=== PATIENT | female | born 1970 | race Caucasian/White ===

== ENCOUNTER 2016-05-13 06:54 | Day surgery (SDC) | payer MEDICAID ==
[~2016-05-13] VITALS: Ht 170.2 cm; Wt 90.0 kg
[~2016-05-13 06:54] MED LIST: AMIT50TA PO; FLUO20CA8 PO; GABA300C10 PO; LISI-170 PO; METF500T4 PO; METH750T2 PO; RISP0.5T3 PO; RISP3TAB3 PO; VENL75TA PO; Will bring list DOS
[2016-05-13] MEDS ORDERED: NEOSPORIN OINT, 15GM ONE (06:55)
[2016-05-13] MEDS ORDERED: BUPIVACAINE/PF-EPI 0.5% 1:200K ONE (06:55)
[2016-05-13] MEDS ORDERED: LACTATED RINGERS 1,000 ML IV SCH (07:49)
[2016-05-13 07:52] VITALS: BP 151/101
[2016-05-13] MEDS ORDERED: MIDAZOLAM 1 MG/ML, 2ML ONE (08:19)
[2016-05-13] MEDS ORDERED: FENTANYL PF 250 MCG/5ML ONE (08:19)
[2016-05-13] MEDS ORDERED: PROMETHAZINE 25 MG/ML, 1ML IV PRN (09:30)
[2016-05-13] MEDS ORDERED: ACETAMINOPHEN 325 MG TABLET PO PRN (09:30)
[2016-05-13] MEDS ORDERED: LABETALOL 5MG/ML, 20ML IV PRN (09:30)
[2016-05-13] MEDS ORDERED: MEPERIDINE/PF 25MG/0.5ML IVPush PRN (09:30)
[2016-05-13] MEDS ORDERED: HYDROmorphone 1 MG/ML, 1ML IV PRN (09:30)
[2016-05-13] MEDS ORDERED: hydrALAzine 20 MG/ML, 1ML IV PRN (09:30)
[2016-05-13] MEDS ORDERED: OXYcodone 5 MG/5 ML ORAL.SOL UDC PO PRN (09:30)
[2016-05-13] MEDS ORDERED: ONDANSETRON 2MG/ML, 2ML IVPush PRN (09:30)
[2016-05-13] MEDS ORDERED: CEFAZOLIN 1,000 MG ONE (09:41)
[2016-05-13] MEDS ORDERED: PROPOFOL 10 MG/ML, 20ML ONE (09:41)
[2016-05-13] MEDS ORDERED: DEXAMETHASONE 4 MG/ML, 5ML ONE (09:41)
[2016-05-13] MEDS ORDERED: ONDANSETRON 2MG/ML, 2ML ONE (09:41)
[2016-05-13] MEDS ORDERED: ROCURONIUM 10 MG/ML ONE (09:41)
[2016-05-13] MEDS ORDERED: OXYcodone/APAP 5/325MG TABLET PO PRN (10:00)
[2016-05-13] MEDS ORDERED: PROMETHAZINE 25 MG/ML, 1ML IM PRN (10:00)
[2016-05-13] MEDS ORDERED: METHOCARBAMOL 750 MG TABLET PO SCH (10:00)
[2016-05-13] MEDS ORDERED: FENTANYL PF 100 MCG/2ML ONE (10:57)
[2016-05-13] MEDS ORDERED: ACETAMINOPHEN 650 MG/20.3 ML UDC ONE (10:57)
[2016-05-13] MEDS ORDERED: OXYcodone 5 MG/5 ML ORAL.SOL UDC ONE (10:58)
[2016-05-13] MEDS ORDERED: METHOCARBAMOL 750 MG TABLET ONE (10:58)
[2016-05-13] MEDS ORDERED: GABAPENTIN 300 MG CAPSULE PO SCH (11:00)
[2016-05-13] MEDS: FENTANYL PF 100 MCG/2ML IV PRN ×2 (11:03→11:10)
[2016-05-13] MEDS ORDERED: MORPHINE SULFATE 4 MG/ML, 1ML ONE ×2 (11:16→13:46)
[2016-05-13] MEDS: morphine SULFATE 10 MG/ML, 1ML IVPush PRN ×2 (11:18→13:49)
[2016-05-13] MEDS ORDERED: HYDROmorphone 2 MG/ML, 1ML ONE (11:45)
[2016-05-13] MEDS ORDERED: ALBUTEROL SULFATE 2.5 MG/3 ML ONE (17:08)
[2016-05-13] MEDS ORDERED: ALBUTEROL SULFATE 2.5 MG/3 ML NPPB ONE (17:30)
[2016-05-14] MEDS ORDERED: FLUOXETINE 20 MG CAPSULE PO SCH (09:00)
[2016-05-14] MEDS ORDERED: LISINOPRIL 20 MG TABLET PO SCH (09:00)
[2016-05-14] MEDS ORDERED: RISPERIDONE 0.5 MG TABLET PO SCH (09:00)
== END 2016-05-13 18:10 | disposition home or self-care (01) ==
LOC: OUT 06:54
PROVIDERS: ATTEND Orthopaedic Surgery Orthopaedic Surgery of the Spine
DX: M46.1 Sacroiliitis, not elsewhere classified (principal); E66.01 Morbid (severe) obesity due to excess calories; Z68.31 Body mass index [BMI] 31.0-31.9, adult; Z72.89 Other problems related to lifestyle; M19.90 Unspecified osteoarthritis, unspecified site; I10 Essential (primary) hypertension
CPT/HCPCS: 27279; 72202; 94640; C1762; C1776; J0690; J1100; J1170; J2250; J2270; J2405; J2704; J3010; J7120; 76000; J7613

== ENCOUNTER 2017-02-27 09:01 | Emergency (ER) | payer MEDICAID ==
[~2017-02-27] VITALS: Ht 170.2 cm; Wt 87.0 kg
[2017-02-27 11:14] LABS: BASOPHILS # (AUTO) 0.03 x10^3/uL (0-0.1); BASOPHILS % (AUTO) 0 % (0-1); EOSINOPHILS # (AUTO) 0.08 x10^3/uL (0-0.4); EOSINOPHILS % (AUTO) 1 % (1-7); LYMPHOCYTES % (AUTO) 13 % (22-44); MD NO; MEAN CORPUSCULAR HEMOGLOBIN 29.8 pg (27.0-34.8); MEAN CORPUSCULAR HGB CONC 33.2 g/dL (32.4-35.8); MEAN CORPUSCULAR VOLUME 89.5 fL (80-100); MEAN PLATELET VOLUME 9.9 fL (7.4-10.4); MONOCYTES # (AUTO) 0.64 x10^3/uL (0.2-0.8); MONOCYTES % (AUTO) 6 % (2-9); NEUTROPHILS # (AUTO) 8.77 x10^3/uL (1.8-6.8); NEUTROPHILS % (AUTO) 80 % (42-75); PLATELET COUNT 275 x10^3/uL (130-400); RED BLOOD COUNT 4.74 x10^6/uL (3.82-5.3); RED CELL DISTRIBUTION WIDTH 14.1 % (9.6-15.2)
[2017-02-27 11:16] VITALS: BP 136/87
[2017-02-27 11:26] LABS: ALANINE AMINOTRANSFERASE 15 U/L (12-78); ALBUMIN 4.2 g/dL (3.4-5.0); ANION GAP 8 mmol/L (5-15); CALCIUM 9.1 mg/dL (8.5-10.1); CHLORIDE 105 mmol/L (98-107); CREATININE 0.76 mg/dL (0.55-1.02)
[2017-02-27 11:31] LABS: ALKALINE PHOSPHATASE 124 U/L (45-117); BILIRUBIN,TOTAL 0.4 mg/dL (0.2-1.0); TOTAL PROTEIN 8.1 g/dL (6.4-8.2); TROPONIN I < 0.015 ng/mL (0.000-0.045)
[2017-02-27 11:33] LABS: RAPID INFLUENZA A POSITIVE (Negative)
[2017-02-27 11:34] LABS: RAPID INFLUENZA B Negative (Negative)
== END 2017-02-27 12:02 | disposition home or self-care (01) ==
LOC: ED 11:50
DX: J09.X2 Influenza due to identified novel influenza A virus with other respiratory manifestations (principal); I10 Essential (primary) hypertension; E78.5 Hyperlipidemia, unspecified
CPT/HCPCS: 36415; 71045; 80053; 84484; 85025; 87400; 93005; 99285

== ENCOUNTER 2019-04-16 11:56 | Emergency (ER) | payer MEDICAID ==
[~2019-04-16] VITALS: Ht 165.1 cm; Wt 81.0 kg
[~2019-04-16 11:56] MED LIST changes: +FLUO20CA23 PO; -FLUO20CA8 PO; +METF500T17 PO; -METF500T4 PO
[2019-04-16 13:16] LABS: RAPID INFLUENZA A Negative (Negative); RAPID INFLUENZA B Negative (Negative)
[2019-04-16 13:45] LABS: BASOPHILS # (AUTO) 0.03 x10^3/uL (0-0.1); BASOPHILS % (AUTO) 0 % (0-1); EOSINOPHILS # (AUTO) 0.13 x10^3/uL (0-0.4); EOSINOPHILS % (AUTO) 1 % (1-7); LYMPHOCYTES # (AUTO) 1.99 x10^3/uL (1-3.4); LYMPHOCYTES % (AUTO) 21 % (22-44); MD NO; MEAN CORPUSCULAR HEMOGLOBIN 29.9 pg (27.0-34.8); MEAN CORPUSCULAR HGB CONC 33.3 g/dL (32.4-35.8); MEAN CORPUSCULAR VOLUME 89.7 fL (80-100); MEAN PLATELET VOLUME 9.6 fL (7.4-10.4); MONOCYTES % (AUTO) 7 % (2-9); NEUTROPHILS # (AUTO) 6.61 x10^3/uL (1.8-6.8); NEUTROPHILS % (AUTO) 71 % (42-75); PLATELET COUNT 322 x10^3/uL (130-400); RED BLOOD COUNT 4.83 x10^6/uL (3.82-5.3); RED CELL DISTRIBUTION WIDTH 13.8 % (9.6-15.2)
[2019-04-16 13:56] LABS: ALBUMIN 4.4 g/dL (3.4-5.0); ANION GAP 10 mmol/L (5-15); CALCIUM 9.4 mg/dL (8.5-10.1); CHLORIDE 107 mmol/L (98-107); CREATININE 0.77 mg/dL (0.55-1.02)
[2019-04-16 13:59] LABS: TROPONIN I < 0.015 ng/mL (0.000-0.045)
--- NOTE | 2019-04-16 15:05 | NUR ---
SKEIN INSPECTOR: PT AMBULATORY TO ROOM FROM LOBBY
[2019-04-16 15:21] VITALS: BP 156/93
--- NOTE | 2019-04-16 15:27 | NUR ---
Pt resting on gurney connected to pulse ox and NIBP cuff. VINNY. EDMD at bedside discussing plan of care with pt. No needs expressed at this time. Pending D/C paperwork. Call light within reach.
--- NOTE | 2019-04-16 15:52 | NUR ---
Patient given discharge instructions and they have confirmed that they understand the instructions. Patient ambulatory with steady gait. Pt left with Rx, d/c paperwork, and all personal belongings. NADN. No needs expressed.
== END 2019-04-16 15:55 | disposition home or self-care (01) ==
LOC: ED 15:50
DX: J20.9 Acute bronchitis, unspecified (principal); I10 Essential (primary) hypertension; E78.5 Hyperlipidemia, unspecified; G89.29 Other chronic pain; R06.00 Dyspnea, unspecified
CPT/HCPCS: 36415; 71046; 80048; 82040; 83605; 84484; 85025; 87040; 87400; 93005; 99285

== ENCOUNTER 2019-09-10 15:12 | Emergency (ER) | payer MEDICAID ==
[~2019-09-10] VITALS: Ht 171.4 cm; Wt 88.0 kg
--- NOTE | 2019-09-10 15:35 | NUR ---
Pt to room from lobby.
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
--- NOTE | 2019-09-10 15:56 | NUR ---
COLONOSCOPY SCHEDULED FOR THIS TUESDAY
[2019-09-10] MEDS ORDERED: MORPHINE SULFATE 4 MG/ML, 1ML ONE (16:08)
[2019-09-10] MEDS ORDERED: ONDANSETRON 2MG/ML, 2ML ONE (16:08)
[2019-09-10 16:31] VITALS: BP 168/98
--- NOTE | 2019-09-10 16:32 | NUR ---
ZOFRAN AND MORPHINE GIVEN PER EMAR. PT AWAITING XR.
--- NOTE | 2019-09-10 16:50 | NUR ---
PT ENDORSED TO BREAK RN.
--- NOTE | 2019-09-10 16:51 | NUR ---
TASK RN: PT TO XRAY AT THIS TIME
[2019-09-10] MEDS ORDERED: ONDANSETRON 2MG/ML, 2ML IVPush ONE (17:00)
[2019-09-10] MEDS ORDERED: MORPHINE SULFATE 4 MG/ML, 1ML IVPush ONE (17:00)
--- NOTE | 2019-09-10 17:34 | NUR ---
PT REPORT FROM VIKA MCCOY RN.
--- NOTE | 2019-09-10 17:54 | NUR ---
DR SANTOS AT
--- NOTE | 2019-09-10 18:30 | NUR ---
PT DC'D PER MACK MENG
== END 2019-09-10 18:16 | disposition home or self-care (01) ==
LOC: ED 17:35
DX: S73.101A Unspecified sprain of right hip, initial encounter (principal); S93.401A Sprain of unspecified ligament of right ankle, initial encounter; S93.601A Unspecified sprain of right foot, initial encounter; E78.5 Hyperlipidemia, unspecified; Z90.49 Acquired absence of other specified parts of digestive tract; Z90.710 Acquired absence of both cervix and uterus; Z90.722 Acquired absence of ovaries, bilateral; I10 Essential (primary) hypertension; W01.0XXA Fall on same level from slipping, tripping and stumbling without subsequent striking against object, initial encounter; Y93.89 Activity, other specified; Y92.009 Unspecified place in unspecified non-institutional (private) residence as the place of occurrence of the external cause; Y99.8 Other external cause status
CPT/HCPCS: 73502; 73610; 73630; 96374; 96375; 99284; J2270; J2405

== ENCOUNTER 2020-01-24 14:47 | Emergency (ER) | payer MEDICAID ==
[~2020-01-24] VITALS: Ht 170.2 cm; Wt 84.0 kg
[~2020-01-24 14:47] MED LIST changes: -RISP0.5T3 PO; +RISP0.5T62 PO; -RISP3TAB3 PO; +RISP3TAB58 PO
[2020-01-24 15:27] VITALS: BP 153/90
[2020-01-24] MEDS ORDERED: METHOCARBAMOL 750 MG TABLET PO ONE (16:00)
[2020-01-24] MEDS ORDERED: KETOROLAC 30 MG/1 ML IVPush ONE (16:00)
[2020-01-24] MEDS ORDERED: HYDROmorphone 2 MG/ML, 1ML IVPush PRN (16:00)
[2020-01-24] MEDS ORDERED: SODIUM CHLORIDE FLUSH 10ML SYR IVF ONE (16:00)
[2020-01-24] MEDS ORDERED: ONDANSETRON 2MG/ML, 2ML IVPush ONE (16:00)
--- NOTE | 2020-01-24 16:07 | NUR ---
RAD IN ROOM.
[2020-01-24] MEDS ORDERED: ONDANSETRON 2MG/ML, 2ML ONE (16:11)
[2020-01-24] MEDS ORDERED: HYDROmorphone 1 MG/ML, 1ML INJ ONE (16:11)
[2020-01-24] MEDS ORDERED: KETOROLAC 30 MG/1 ML ONE (16:11)
[2020-01-24] MEDS ORDERED: METHOCARBAMOL 750 MG TABLET ONE (16:11)
--- NOTE | 2020-01-24 16:39 | NUR ---
PIV STARTED, PT MEDICATED PER EMAR. VSS, NADN. AWAITING RAD.
--- NOTE | 2020-01-24 16:50 | NUR ---
PT TRANSFERED TO WHEELCHAIR W/O DIFFICULTY AND ASSISTED TO REST ROOM. RETURNED TO ROOM W/O INCIDENT. PT REPORTS RELIEF IN PAIN AFTER MEDS.
--- NOTE | 2020-01-24 16:51 | NUR ---
PT TO RAD.
[2020-01-24] MEDS ORDERED: PROMETHAZINE 25 MG/ML, 1ML IM ONE (17:30)
--- NOTE | 2020-01-24 18:56 | NUR ---
Patient given discharge instructions and they have confirmed that they understand the instructions. Patient wheeled to dc desk per pt request. VINNY.
== END 2020-01-24 18:57 | disposition home or self-care (01) ==
LOC: ED 18:48
DX: S39.012A Strain of muscle, fascia and tendon of lower back, initial encounter (principal); E78.5 Hyperlipidemia, unspecified; I10 Essential (primary) hypertension; Z90.710 Acquired absence of both cervix and uterus; Z90.49 Acquired absence of other specified parts of digestive tract; Z90.721 Acquired absence of ovaries, unilateral; X58.XXXA Exposure to other specified factors, initial encounter; Y93.89 Activity, other specified; Y92.89 Other specified places as the place of occurrence of the external cause; Y99.8 Other external cause status
CPT/HCPCS: 72110; 93005; 96374; 96375; 99284; J1170; J1885; J2405

== ENCOUNTER 2020-02-23 15:09 | Emergency (ER) | payer MEDICAID ==
[~2020-02-23] VITALS: Ht 165.1 cm; Wt 75.0 kg
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
[2020-02-23] MEDS ORDERED: LORazepam 2 MG/ML, 1ML IM ONE (15:30)
[2020-02-23] MEDS ORDERED: LORazepam 2 MG/ML, 1ML ONE (15:43)
--- NOTE | 2020-02-23 15:56 | NUR ---
PATIENT MEDICATED PER ORDER, PT LESS TEARFUL, NOT YELLING AND CRYING OUT AT THIS TIME.CONTINUES ON MONITOR EQUIPMENT. AWAITING MEDICTION EFFECT.
--- NOTE | 2020-02-23 17:11 | NUR ---
CALL FROM DAVID, PATIENTS PARTNER WHO STATES THE PATIENT USES MARIJUANA FOR HER PAIN AND SHE WAS OUT YESTERDAY. DAVID STATES SHE MIGHT HAVE BEEN TRYING TO SUBSTITUTE HER MARIJUANA WITH SOME MUSCLE RELAXERS SHE HAS AT HOME. THE PATIENT DOES NOT WANT US TO SPEAK WITH HER PARTNER DAVID ABOUT HER CONDITION. PARTNER DAVID STATES SHE HAS BEEN IN CONTACT WITH PATIENTS MOTHER.
--- NOTE | 2020-02-23 17:29 | NUR ---
PATIENT COMPLAINING OF NECK AND PAIN ON THE BACK OF HER HEAD. ASSISTED THE PATIENT IN CALLING HER MOM ON HER CELL PHONE. PT'S MOM ADVISED THAT SHE WILL PICK HER UP WHEN DISCHARGED. PATIENT CONTINUES TO BE TEARY BUT NO OTHER OUTBURSTS OR YELLING. VITALS UPDATED AND CALL LIGHT WITHIN REACH. NO ADDITIONAL NEEDS AT THIS TIME.
[2020-02-23 17:47] LABS: BASOPHILS % (AUTO) 1 % (0-1); EOSINOPHILS % (AUTO) 0 % (1-7); LYMPHOCYTES % (AUTO) 11 % (22-44); MEAN CORPUSCULAR HEMOGLOBIN 29.6 pg (27.0-34.8); MEAN CORPUSCULAR HGB CONC 33.1 g/dL (32.4-35.8); MEAN PLATELET VOLUME 9.2 fL (7.4-10.4); MONOCYTES % (AUTO) 4 % (2-9); NEUTROPHILS % (AUTO) 84 % (42-75); PLATELET COUNT 358 x10^3/uL (130-400); RED BLOOD COUNT 4.91 x10^6/uL (3.82-5.3); RED CELL DISTRIBUTION WIDTH 13.9 % (9.6-15.2)
--- NOTE | 2020-02-23 17:58 | NUR ---
patients mom is minna [phone]. She will pick her up anytime when discharged.
[2020-02-23 18:01] LABS: ALANINE AMINOTRANSFERASE 16 U/L (12-78); ALBUMIN 4.5 g/dL (3.4-5.0); ANION GAP 5 mmol/L (5-15); CALCIUM 9.3 mg/dL (8.5-10.1); CHLORIDE 110 mmol/L (98-107)
[2020-02-23 18:02] LABS: ALKALINE PHOSPHATASE 119 U/L (45-117); BILIRUBIN,TOTAL 0.5 mg/dL (0.2-1.0); CREATINE KINASE, TOTAL 99 U/L (26-192); TOTAL PROTEIN 8.4 g/dL (6.4-8.2)
[2020-02-23 18:05] LABS: MD SCAN
[2020-02-23] MEDS ORDERED: ACETAMINOPHEN 500 MG TABLET PO ONE (18:30)
[2020-02-23] MEDS ORDERED: ACETAMINOPHEN 500 MG TABLET ONE (18:36)
--- NOTE | 2020-02-23 18:46 | NUR ---
PT ABLE TO AMBULATE WITH STAND BY ASSIST WITH USE OF WHEELCHAIR FOR BALANCE. MOVES SLOWLY AND STEADILY.
--- NOTE | 2020-02-23 18:55 | NUR ---
CALL TO MOM FOR PICKUP, MOM ADVISED SHE LIVES AN HOUR AWAY AND IS LEAVING NOW. REPORT TO CAILIN GIRON.
--- NOTE | 2020-02-23 18:55 | NUR ---
DISCUSSED WITH DR BEY, PT ABLE TO AMB WITH ASSIST OF W/C FOR SUPPORT, PT TO BE DC'D.
--- NOTE | 2020-02-23 18:55 | NUR ---
report recieved from bo rn.
[2020-02-23 19:48] VITALS: BP 153/99
== END 2020-02-23 20:16 | disposition home or self-care (01) ==
LOC: ED 16:02
DX: D72.829 Elevated white blood cell count, unspecified (principal); F41.0 Panic disorder [episodic paroxysmal anxiety]; R06.4 Hyperventilation; F41.1 Generalized anxiety disorder; R00.9 Unspecified abnormalities of heart beat; R94.31 Abnormal electrocardiogram [ECG] [EKG]; I10 Essential (primary) hypertension; Z90.49 Acquired absence of other specified parts of digestive tract; Z90.710 Acquired absence of both cervix and uterus; Z90.721 Acquired absence of ovaries, unilateral
CPT/HCPCS: 36415; 71045; 80053; 82550; 85025; 93005; 96372; 99285; J2060

== ENCOUNTER 2020-04-04 11:18 | Emergency (ER) | payer MEDICAID ==
[~2020-04-04] VITALS: Ht 170.2 cm; Wt 85.0 kg
[~2020-04-04 11:18] MED LIST changes: +METH-640 PO; -METH750T2 PO
--- NOTE | 2020-04-04 11:46 | NUR ---
PT SENT FROM PCP FOR HTN, NAUSEA, AND FEELING "LIGHT HEADED". EKG COMPLETE IN TRIAGE. PT ASSISTE TO RESTROOM AND BACK. PT REPORTS FEELING WEAK ON HER FEET AND LIGHT HEADED WHEN SHE WALKS. PT RESTING IN [facility].
[2020-04-04] MEDS ORDERED: LISINOPRIL 10 MG TABLET ONE (11:55)
--- NOTE | 2020-04-04 11:57 | NUR ---
PT MEDICATED PER MAR. LABS DRAWN. X RAY COMPLETE
[2020-04-04] MEDS ORDERED: LISINOPRIL 10 MG TABLET PO ONE (12:00)
[2020-04-04 12:07] LABS: BASOPHILS % (AUTO) 1 % (0-1); EOSINOPHILS % (AUTO) 1 % (1-7); LYMPHOCYTES % (AUTO) 23 % (22-44); MEAN CORPUSCULAR HGB CONC 33.3 g/dL (32.4-35.8); MEAN PLATELET VOLUME 9.4 fL (7.4-10.4); MONOCYTES % (AUTO) 6 % (2-9); NEUTROPHILS % (AUTO) 69 % (42-75); PLATELET COUNT 318 x10^3/uL (130-400); RED BLOOD COUNT 4.66 x10^6/uL (3.82-5.3); RED CELL DISTRIBUTION WIDTH 14.4 % (9.6-15.2)
[2020-04-04 12:08] LABS: MD NO
[2020-04-04 12:17] LABS: ALBUMIN 4.5 g/dL (3.4-5.0); ANION GAP 5 mmol/L (5-15); CALCIUM 9.4 mg/dL (8.5-10.1); CHLORIDE 109 mmol/L (98-107)
[2020-04-04 12:23] LABS: CREATININE 0.76 mg/dL (0.55-1.02); TROPONIN I < 0.015 ng/mL (0.000-0.045)
--- NOTE | 2020-04-04 12:30 | NUR ---
RECEIVED REPORT FROM YUSRA GIRON. ASSUMING CARE AT THIS TIME.
[2020-04-04 12:32] VITALS: BP 161/87
== END 2020-04-04 12:54 | disposition home or self-care (01) ==
LOC: ED 12:41
DX: R07.89 Other chest pain (principal); I10 Essential (primary) hypertension; M79.7 Fibromyalgia; M81.0 Age-related osteoporosis without current pathological fracture; E78.5 Hyperlipidemia, unspecified; Z90.49 Acquired absence of other specified parts of digestive tract; Z90.710 Acquired absence of both cervix and uterus
CPT/HCPCS: 36415; 71045; 80048; 82040; 84484; 85025; 93005; 99285

== ENCOUNTER 2020-05-10 13:22 | Emergency (ER) | payer MEDICAID ==
[~2020-05-10] VITALS: Ht 170.2 cm; Wt 85.3 kg
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
[2020-05-10] MEDS ORDERED: LISI-170 PO (13:36)
[2020-05-10] MEDS ORDERED: PREG25CA PO (13:36)
--- NOTE | 2020-05-10 13:37 | NUR ---
ERPA AT BEDSIDE FOR EVALUATION.
[2020-05-10] MEDS ORDERED: ONDANSETRON ODT 4 MG ONE (13:54)
[2020-05-10] MEDS ORDERED: OXYcodone/APAP 5/325MG TABLET ONE (13:54)
[2020-05-10] MEDS ORDERED: ONDANSETRON ODT 4 MG PO ONE (14:00)
[2020-05-10] MEDS ORDERED: OXYcodone/APAP 5/325MG TABLET PO ONE (14:00)
--- NOTE | 2020-05-10 14:27 | NUR ---
PATIENT REFUSING X-RAY, STATING "I NEED MORE PAIN MEDICINE." GAEL MOSQUERA NOTIFIED. AT BEDSIDE.
--- NOTE | 2020-05-10 14:39 | NUR ---
X-RAY NOTIFIED THAT PATIENT IS READY.
--- NOTE | 2020-05-10 15:08 | NUR ---
ERPA AT BEDSIDE TO DISCUSS POC.
[2020-05-10 15:14] VITALS: BP 142/82
--- NOTE | 2020-05-10 15:37 | NUR ---
Patient given discharge instructions and prescription and they have confirmed that they understand the instructions. Patient stable and ambulatory with use of cruthces from ED to private vehicle.
== END 2020-05-10 15:38 | disposition home or self-care (01) ==
LOC: ED 13:46
DX: S90.112A Contusion of left great toe without damage to nail, initial encounter (principal); S90.122A Contusion of left lesser toe(s) without damage to nail, initial encounter; M79.89 Other specified soft tissue disorders; Z88.0 Allergy status to penicillin; Z88.8 Allergy status to other drugs, medicaments and biological substances; X58.XXXA Exposure to other specified factors, initial encounter; Y93.89 Activity, other specified; Y92.098 Other place in other non-institutional residence as the place of occurrence of the external cause; Y99.8 Other external cause status
CPT/HCPCS: 73630; 99283; Q0162